=== PATIENT | female | born 1950 | race African-American/Black ===

== ENCOUNTER → 2016-05-13 | Outpatient (CLI) | payer MEDICARE, OTHER ==
[2015-08-02 21:55] VITALS: BP 186/90
[~2016-05-13] MED LIST: ASPI-482 PO; ATEN100T PO; CHOL20002 PO; CLON0.1T PO; ERGO500012 PO; GLIM4TAB2 PO; GLIP10TA20 PO; HYDR25TA9 PO; METF10002 PO; NAPR220C4 PO; OMEP20CA9 PO; PRAV40TA2 PO; SPIR25TA3 PO; UBID100C3 PO; VALS1TAB18 PO
--- NOTE | 2016-05-14 10:03 | RAD ---
DATE: 05/13/2016 EXAM: DIGITAL SCREEN BILAT W/CAD HISTORY: Routine screening COMPARISON: 05/12/2015, 04/15/2013 This study was interpreted with the benefit of Computerized Aided Detection (CAD). FINDINGS: There are scattered fibroglandular densities in the breasts in a somewhat nodular pattern. A tiny smooth nodule in the lateral aspect of the right breast is unchanged. No new or enlarging breast densities are seen. Numerous benign type calcifications are present in both breasts, some of which are related to the skin. No suspicious microcalcifications have developed. IMPRESSION: Stable mammograms without evidence of malignancy. BI-RADS CATEGORY: 2 BENIGN FINDING(S) RECOMMENDED FOLLOW-UP: 12M 12 MONTH FOLLOW-UP PQRS compliance statement: Patient information was entered into a reminder system with a target due date for the next mammogram. Mammography is a sensitive method for finding small breast cancers, but it does not detect them all and is not a substitute for careful clinical examination. A negative mammogram does not negate a clinically suspicious finding and should not result in delay in biopsying a clinically suspicious abnormality. "Our facility is accredited by the [employer] Mammography Program."
== END | disposition home or self-care (01) ==
LOC: MAMMO 04-25 15:17
PROVIDERS: ATTEND Family Medicine
DX: Z12.31 Encounter for screening mammogram for malignant neoplasm of breast (principal)
CPT/HCPCS: G0202; 77067

== ENCOUNTER → 2018-03-05 | Day surgery (SDC) | payer MEDICARE, OTHER ==
[~2018-03-05] MED LIST changes: -ERGO500012 PO; +ERGO500027 PO; -GLIP10TA20 PO; +GLIP10TA24 PO; +HYDR-2145 PO; -HYDR25TA9 PO; +IV RINGERS,LACTATED 1000ML 1,000 ML IV SCH; +LIDOCAINE 1% PF 2 ML VIAL. ID PRN; +LOSA-73 PO; -METF10002 PO; +METF10007 PO; +MIDAZOLAM HCL/PF 2 MG/2 ML VIAL. IV PRN; +PROPOFOL 40 ML IV ONE; +SITA50TA PO; -SPIR25TA3 PO; +SPIR25TA5 PO; +UBID100C18 PO; -UBID100C3 PO; +fentaNYL PF VIAL 100 MCG/2 ML VIAL IV PRN
--- NOTE | 2018-03-05 11:23 | PREOP HP ---
DATE OF SERVICE: 03/05/2018 REQUESTING PHYSICIAN: Ila Jacobsen M.D. PRIMARY CARE PHYSICIAN: Ila Jacobsen M.D. REASON FOR PROCEDURE: Dysphagia, diarrhea and positive hematuria. HISTORY OF PRESENT ILLNESS: This is a 68-year-old female who presents for dysphagia. She had thyroid surgery in 2016 and her symptoms began after that. She also has diarrhea and that started 2-3 years ago. She reports recently that she has a positive hematuria. ALLERGIES: CODEINE. PAST MEDICAL HISTORY: 1. Arthritis. 2. Diabetes. 3. Reflux. 4. Hypertension. 5. Hypercholesterolemia. 6. Sleep apnea. 7. Uterine cancer. FAMILY MEDICAL HISTORY: Significant for colon polyps in one of her children. SOCIAL HISTORY: No current tobacco, alcohol or IV drug abuse. MEDICATIONS: MAR reviewed. REVIEW OF SYSTEMS: A 13-point review of systems was done and is positive as per HPI and otherwise negative. PHYSICAL EXAMINATION: VITAL SIGNS: She is afebrile and her vital signs are stable. GENERAL: She is a well-developed, well-nourished female, in no apparent distress. HEENT: Oropharynx is clear. CARDIOVASCULAR: S1, S2. LUNGS: Clear. ABDOMEN: Normoactive bowel sounds. Soft, nontender and nondistended. EXTREMITIES: No edema. NEUROLOGIC: Awake and orientated x 3. ASSESSMENT AND PLAN: 1. Dysphagia. We will perform an upper endoscopy for further evaluation. The risks and benefits including bleeding, perforation, non-diagnosis and sedation were explained and she has agreed to proceed. 2. Diarrhea. 3. Positive hematuria. Colonoscopy will be performed today. The risks and benefits including bleeding, perforation, non-diagnosis and sedation were explained. She has agreed to proceed. Thank you for allowing me to participate in the care of this patient. MINERAV BLANTON MD DR: ESTEFANY/deny JOB#: [id number] / [id number]
[2018-03-05 11:27] VITALS: BP 170/76
--- NOTE | 2018-03-06 15:09 | PATHOLOGY ---
[facility] Accession Number: [id number] . 01 Material submitted: . PART A: SMALL BOWEL BIOPSY PART B: GASTRIC ANTRUM BIOPSY PART C: DISTAL ESOPHAGUS BIOPSY PART D: MID ESOPHAGUS BIOPSY PART E: TERMINAL ILEUM BIOPSY PART F: RIGHT COLON BIOPSY PART G: LEFT COLON BIOPSY . 01 Clinical history: . Dysphagia, diarrhea . 02 Diagnosis: A. Small intestinal mucosa "small bowel biopsy": - No obvious diagnostic changes. - There is no evidence of acute cryptitis, granulomas, adenomatous change or malignancy. . B. Gastric biopsy "gastric antrum": - Mild chronic reactive gastropathy. - There is no evidence of atypia or malignancy. - The immunoperoxidase stain for Helicobacter pylori is negative. . C. Squamous and glandular mucosa "distal esophageal biopsy": - Mild reflux esophagitis with reactive squamous and glandular mucosa and underlying chronic inflammation. - There is no evidence of goblet cell metaplasia, dysplasia or malignancy. . D. Squamous mucosa "mid esophagus biopsy": - Mild reactive squamous epithelium. - There is no evidence of goblet cell metaplasia, dysplasia or malignancy. . E. Small intestinal mucosa "terminal ileum biopsy": - Prominent Peyer's patches. - Diagnostic features of inflammatory bowel disease are not seen. . F. Colonic mucosa "right colon biopsy": - No obvious diagnostic changes. - Diagnostic features of inflammatory bowel disease and microscopic colitis are not seen. . G. Colonic mucosa "left colon biopsy": - No diagnostic changes. - There is no evidence of microscopic colitis or changes of inflammatory bowel disease. (SHA:[facility] 03/06/2018) QTP/03/06/2018 . 02 Electronically signed: . Low Singh MD, Pathologist NPI- [id number] . 01 Gross description: . A. Received in formalin labeled "Luster, Christine, small bowel BX," are 3 segments of marinelli soft tissue measuring 0.9 x 0.3 x 0.2 cm in aggregate dimensions and ranging from 0.3 to 0.4 cm in maximum dimension. The specimen is submitted entirely in cassette A1. . B. Received in formalin labeled "Luster, Christine, gastric antrum BX," are 2 segments of marinelli soft tissue measuring 0.9 x 0.2 x 0.2 cm in aggregate dimensions and ranging from 0.4 to 0.5 cm in maximum dimension. The specimen is submitted entirely in cassette B1. . C. Received in formalin labeled "Luster, Christine, distal esophagus BX," are 2 segments of marinelli soft tissue measuring 0.9 x 0.3 x 0.2 cm in aggregate dimensions and ranging from 0.4 to 0.5 cm in maximum dimension. The specimen is submitted entirely in cassette C1. . D. Received in formalin labeled "Luster, Christine, mid esophagus BX," are 2 segments of marinelli soft tissue measuring 0.9 x 0.3 x 0.1 cm in aggregate dimensions and ranging from 0.4 to 0.5 cm in maximum dimension. The specimen is submitted entirely in cassette D1. . E. Received in formalin labeled "Luster, Christine, terminal ileum BX," are 2 segments of marinelli soft tissue measuring 0.7 x 0.2 x 0.2 cm in aggregate dimensions and ranging from 0.3 to 0.4 cm in maximum dimension. The specimen is submitted entirely in cassette E1. . F. Received in formalin labeled "Luster, Christine, right colon BX," are 4 segments of marinelli soft tissue measuring 1.1 x 0.5 x 0.2 cm in aggregate dimensions and ranging from 0.3 to 0.6 cm in maximum dimension. The specimen is submitted entirely in cassette F1. . G. Received in formalin labeled "Luster, Christine, left colon BX," are 3 segments of marinelli soft tissue measuring 0.7 x 0.6 x 0.2 cm in aggregate dimensions and ranging from 0.3 to 0.4 cm in maximum dimension. The specimen is submitted entirely in cassette G1. (TSD; 03/05/2018) TOB/TOB . 02 Pathologist provided ICD-10: K31.9, K21.0, R19.7, R13.10 . 02 CPT . 457540, 832180, 465216, [id number], [id number], [id number], [id number], [id number] Specimen Comment: A courtesy copy of this report has been sent to Specimen Comment: [phone], . Specimen Comment: Report sent to / DR MONROY Specimen Comment: A duplicate report has been generated due to demographic updates. Performed at: 01 [facility] [address] [facility] [address], [place] [id number] MD Wayne Gaytan MD Phone: [phone] Performed at: 02 [facility] [address] [place], [place] [id number] MD Evin Chatterjee MD Phone: [phone]
== END | disposition home or self-care (01) ==
LOC: ENDOS 09:51
PROVIDERS: ATTEND Internal Medicine Gastroenterology
DX: K21.0 Gastro-esophageal reflux disease with esophagitis (principal); K44.9 Diaphragmatic hernia without obstruction or gangrene; K29.70 Gastritis, unspecified, without bleeding; K64.0 First degree hemorrhoids; E11.9 Type 2 diabetes mellitus without complications; M19.90 Unspecified osteoarthritis, unspecified site; I10 Essential (primary) hypertension; E78.00 Pure hypercholesterolemia, unspecified; G47.30 Sleep apnea, unspecified; Z85.42 Personal history of malignant neoplasm of other parts of uterus; Z83.71 Family history of colonic polyps; Z79.899 Other long term (current) drug therapy; Z88.5 Allergy status to narcotic agent; Z79.84 Long term (current) use of oral hypoglycemic drugs
CPT/HCPCS: 43239; 43450; 45380; 82962; 88305; 88342; J2704